=== PATIENT | male | born 1950 | race Caucasian/White ===

== ENCOUNTER 2022-03-12 12:04 | Day surgery (SDC) | payer MEDICARE, SELFPAY ==
[2022-03-08 09:24] VITALS: BMI 37.4
[2022-03-12] VITALS (10 sets, daily range): BP systolic 110–160; BP diastolic 65–99; PULSE 54–89; RESP 11–22; TEMP 36–36.4; O2SAT 93–99; BMI 37.4
[2022-03-12 14:01] LABS: COVID19 -Nasal RAPID Negative (Negative)
--- NOTE | 2022-03-12 14:05 | PM.HP.1 ---
History of Present Illness History of Present Illness Date Patient Seen: 03/12/22 Time Patient Seen: 14:05 Chief complaint: Hernia Repair - Umbilical Narrative: Haroon is here for his umbilical hernia repair. He has lost at least 5 lbs. Patient History Medical History (Updated 02/06/22 @ 13:16 by Saleem Abbott MD) GERD without esophagitis History of prostate cancer Hyperlipemia Hypertension Peripheral neuropathy Urinary frequency Surgical History (Updated 03/08/22 @ 09:30 by Sandrine Weinberg RN) Hx of colonoscopy Family & Social History Tobacco & Substance use: Smoking Status Former smoker Meds Home Medications and Allergies Home Medications Medication Instructions Recorded Confirmed Type atorvastatin 20 mg tablet 20 mg PO DAILY 02/06/22 03/12/22 History cholecalciferol (vitamin D3) 25 25 mcg PO DAILY 02/06/22 03/12/22 History mcg (1,000 unit) capsule duloxetine 60 mg capsule,delayed 60 mg PO DAILY 02/06/22 03/12/22 History release ibuprofen 200 mg tablet 400 mg PO Q6H PRN Pain 02/06/22 03/12/22 History losartan 50 mg-hydrochlorothiazide 1 tab PO DAILY 02/06/22 03/12/22 History 12.5 mg tablet multivitamin (Daily Multi-Vitamin 1 tab PO DAILY 02/06/22 03/12/22 History tablet) omeprazole 20 mg capsule,delayed 20 mg PO DAILY 02/06/22 03/12/22 History release tamsulosin 0.4 mg capsule 0.4 mg PO DAILY 02/06/22 03/12/22 History Allergies Allergy/AdvReac Type Severity Reaction Status Date / Time pollen extracts Allergy Verified 03/12/22 14:00 Exam Narrative Exam Narrative: Umbilical hernia Objective Labs Labs: Laboratory Results - last 24 hr 03/12/22 13:15 SARS-CoV-2 (PCR) Negative Assessment & Plan Assessment and plan (1) Umbilical hernia with obstruction, without gangrene: Status: Acute Plan We reviewed the plan for open umbilical hernia repair with mesh and he would like to proceed. Time Spent With Patient Critical Care time: I spent a total of [] minutes of critical care time on this patient's care today; this time is exclusive of procedural time.
[2022-03-12] MEDS: LACTATED RINGERS 1,000 ML 42 ML IV (14:25)
[2022-03-12] MEDS: CEFAZOLIN 2 GM/100 ML PREMIX 100 ML IV (14:34)
[2022-03-12] MEDS: LIDOCAINE 1% W/EPI 20 ML INJ (14:57)
--- NOTE | 2022-03-12 15:01 | SUR.OPER ---
Supine on padded OR bed, head on pillow, arms secured on padded arm boards at <90 degrees abduction, legs uncrossed, safety belt at thigh, tape over blanket over lower legs.
--- NOTE | 2022-03-12 15:43 | PM.OP.1 ---
Operative Date/Time/Diagnoses Date of procedure: 03/12/22 Time of procedure: 15:43 Pre-op diagnosis: Umbilical hernia Post-op diagnosis: same Procedure & Clinicians Procedure: Open umbilical hernia repair with mesh Same procedure as scheduled: Yes Surgeon: Saleem Abbott Operative Notes Procedure in detail: Ancef was administered. The patient was brought to the operating room, placed on the table in the supine position and general endotracheal anesthesia was induced. The abdomen was prepped and draped in the usual fashion. A time-out was performed. A 6 cm curvilinear incision was made inferior to the umbilicus. The hernia sac was dissected free from the surrounding subcutaneous adipose tissue. The sac was dissected off the umbilical stalk using a combination of cautery, sharp and blunt dissection. The hernia sac was dissected free from the fascial ring and allowed to drop back down into the abdomen. The fascia was then closed transversely with multiple interrupted 0 Ethibond sutures. The subcutaneous adipose tissue was cleared off of the anterior sheath circumferentially about 2 cm in each direction. A piece of polypropylene mesh was trimmed to fit over the fascial closure and secured with Tisseel. Once the Tisseel was dried the umbilical skin was tacked down to the mesh with a single 3-0 Vicryl stitch. The skin was closed with multiple interrupted 3-0 Vicryl dermal sutures followed by a running 4 Monocryl subcuticular closure. Steri-Strips were applied and an abdominal binder was applied. EBL: 10 mL Post-operative Condition: stable Disposition: PACU
[2022-03-12] MEDS: OXYCODONE IR 5 MG TABLET PO (15:52)
[2022-03-12] MEDS: ONDANSETRON 4 MG/2 ML INJ IV (15:52)
== END 2022-03-12 16:55 | disposition home or self-care (01) ==
PROVIDERS: PCP Nurse Practitioner Family; Referring Provider Surgery; Visit Provider Surgery
PROC: (CPT 49585; principal; 2022-03-12 14:00)
DX: K42.9 Umbilical hernia without obstruction or gangrene (principal); I10 Essential (primary) hypertension; K21.9 Gastro-esophageal reflux disease without esophagitis; Z20.822 Contact with and (suspected) exposure to COVID-19
CPT/HCPCS: 49585; 87635; C9803; J0690; J2405; J2704; J3010